=== PATIENT | male | born 2000 | race Two or more races ===

== ENCOUNTER 2024-09-28 13:30 | Emergency (ER) | payer OTHER ==
[~2024-09-28] VITALS: Ht 170.2 cm; Wt 63.5 kg
--- NOTE | 2024-09-28 14:51 | DVH ---
CLINICAL INDICATION: INJURY T/O FX TECHNIQUE: XY R FOOT 3 VIEW XRAY Comparison: None FINDINGS/IMPRESSION: : Linear lucencies are present in the distal fibula which may represent age indeterminate minimally dis placed fracture. Recommend correlation with point tenderness. No acute fracture of the foot.
[2024-09-28] MEDS ORDERED: IBUP-1454 PO (15:04)
--- NOTE | 2024-09-28 15:05 | ED.PDOC ---
Musculoskeletal HPI Comments 24 year old male presents for possible fracture to the right medial malleolus Sustained snowboarding injury 5 days ago doing a 360 [place] a snap. Did not seek evaluation bc he thought it was a sprain but pain has persisted Pain 10/03 but unable to walk on it Chief Complaint: Lower Extremity Time Seen by MD: 14:18 Primary Care Provider: NONE Reviewed Notes: Nurses Notes, Medications, Allergies Allergies: Coded Allergies: NO KNOWN ALLERGIES (Unverified , 09/28/24) Information Source: Patient Mode of Arrival: Ambulatory X-Ray, Labs, Meds, VS Vital Signs Date Time Temp Pulse Resp B/P (MAP) Pulse Ox O2 Delivery O2 Flow Rate FiO2 09/28/24 13:50 98.5 99 16 111/58 (75) 96 PATIENT: CYDNEY BARBOZA: [id number]: [id number] : 2000 LOC: ER ROOM / BED: / AGE / SEX: 24 / M ADM STATUS: REG ER SERVICE 1423 ORDERING PHYSICIAN: KURT RIZVI NP PROCEDURE(s): RFOOT - R FOOT 3 VIEW XRAY REASON: INJURY T/O FX ORDER NUMBER(s): [id number], ACCESSION NUMBER(s): [id number] CLINICAL INDICATION: INJURY T/O FX TECHNIQUE: XY R FOOT 3 VIEW XRAY Comparison: None FINDINGS/IMPRESSION: : Linear lucencies are present in the distal fibula which may represent age indeterminate minimally displaced fracture. Recommend correlation with point tenderness. No acute fracture of the foot. ATED BY: FRANSISCO OROZCO MD DICTATED DATE/TIME: 09/28/24 1448 SIGNED BY: FRANSISCO OROZCO MD SIGNED DATE/TIME: 09/28/24 1448 CC: X-Ray, Labs, Meds, VS Comment Linear lucencies are present in the distal fibula which may represent age indeterminate minimally displaced fracture. Recommend correlation with point tenderness. No acute fracture of the foot. Time of 1ST Reevaluation: 15:02 Departure 1 Departure Time of Disposition: 15:03 Impression: Primary Impression: Fracture of distal fibula Qualified Codes: S82.831A - Other fracture of upper and lower end of right fibula, initial encounter for closed fracture Disposition: HOME / SELF CARE / HOMELESS Condition: Stable e-Prescriptions Ibuprofen (Ibuprofen) 600 Mg Tab 1 TAB PO TID for 10 Days, #30 TAB 0 Refills Prov: KURT RIZVI NP 09/28/24 KURT RIZVI NP Sep 28, 2024 15:05
[2024-09-28 15:07] VITALS: BP 111/58; PULSE 99; RESP 16; TEMP 98.5; O2SAT 96
== END 2024-09-28 15:35 | disposition home or self-care (01) ==
LOC: ER 13:30
DX: S82.491A Other fracture of shaft of right fibula, initial encounter for closed fracture (principal); Y93.23 Activity, snow (alpine) (downhill) skiing, snowboarding, sledding, tobogganing and snow tubing; Y93.89 Activity, other specified; Y92.89 Other specified places as the place of occurrence of the external cause; Y99.8 Other external cause status
CPT/HCPCS: 29515; 73630